=== PATIENT | male | born 1980 | race Caucasian/White ===

== ENCOUNTER 2019-12-31 13:33 | Emergency (ER) | payer OTHER ==
[~2019-12-31] VITALS: Ht 175.3 cm; Wt 87.0 kg
[2019-12-31 13:35] VITALS: BP 142/92
--- NOTE | 2019-12-31 14:00 | PHYS DOC ---
Past History Past Medical History: No Pertinent History Past Surgical History: No Surgical History Smoking: Non-smoker Adult General Chief Complaint Chief Complaint: ANIMAL BITE HPI HPI Patient is a 39 year old male who presents with a dog bite on his left posterior thigh that occurred during a bike ride this morning at 0700. Patient states he went to an urgent care where he was given a tetanus vaccine and a prescription for Augmentin. He was instructed to go to the ED for a possible rabies vaccine. Patient is unsure if dog is up to date on its vaccines. Owners of the dog are unavailable at this time. Neighbors of the bufferer reportedly stated that the dog is known to be aggressive in the neighborhood. Police report has been filed. Patient states the pain is at a 0/10 currently. Patient reports it is known where dog resides and is domesticated. Review of Systems Review of Systems Constitutional: Denies fever or chills Eyes: Denies redness or eye pain HENT: Denies nasal congestion or sore throat Respiratory: Denies cough or shortness of breath Cardiovascular: Denies chest pain or palpitations GI: Denies abdominal pain, nausea, or vomiting : Denies dysuria or hematuria Musculoskeletal: Denies back pain or joint pain Integument: Denies rash or skin lesions. Reports dog bite wounds on his left posterior thigh. Neurologic: Denies headache, focal weakness or sensory changes Complete systems were reviewed and found to be within normal limits, except as documented in this note. Current Medications Current Medications Current Medications Medications (Trade) Dose Ordered Sig/Trent Start Time Stop Time Status Last Admin Dose Admin Amoxicillin/ Clavulanate Potassium (Augmentin 875/ 125mg) 1 tab 1X ONCE 12/31/19 14:00 12/31/19 14:01 UNV Neomycin/ Polymyxin/ Bacitracin (Triple Antibiotic Ointment) 1 pkt 1X ONCE 12/31/19 14:00 12/31/19 14:01 UNV Physical Exam Physical Exam Constitutional: Well developed, well nourished, no acute distress, non-toxic appearance HENT: Normocephalic, atraumatic, oropharynx moist Eyes: Conjunctiva normal, no discharge Neck: Normal range of motion, no tenderness, supple Cardiovascular: Heart rate normal, regular rhythm Lungs & Thorax: Bilateral breath sounds clear to auscultation, no wheezing Skin: Warm, dry, no erythema, dog bite wound to left posterior thigh as below Extremities: No tenderness, ROM intact, no edema. Mild tenderness to palpation of two 1 cm puncture wounds located on his left posterior thigh with dressing with scant serosanguineous drainage Neurologic: Alert and oriented X 3, no focal deficits noted Psychologic: Affect normal, judgment normal Course & Med Decision Making Course & Med Decision Making Patient is a 39 year old male who presents with a dog bite on his left posterior thigh that occurred during a bike ride this morning at 0700. Patient is unsure if dog is up to date on its vaccinations. Owners of the dog are unavailable currently. Police report was filed. Patient received tetanus vaccine at urgent care along with a prescription for Augmentin. Wound was cleaned with chlorhexidine and non-adhesive dressing with Triple antibiotic ointment was applied. Patient given instructions on wound care. Patient stable for discharge with outpatient follow-up with PCP. Discussed findings and plan with patient, who acknowledges understanding and agreement. Dragon Disclaimer Dragon Disclaimer This electronic medical record was generated, in whole or in part, using a voice recognition dictation system. Departure Departure: Impression: Primary Impression: Dog bite Disposition: 01 HOME, SELF-CARE Condition: STABLE Referrals: ENMA ROBLES DO (PCP) Patient Instructions: Animal Bite, [id number], Wound Care, [id number] Additional Instructions: Do not soak your wound. You may shower. Clean wound daily with soap and water. Change dressing 2 times daily. Use over the counter antibiotic ointment with each dressing change. Problem Qualifiers Primary Impression: Dog bite Encounter type: initial encounter Qualified Codes: W54.0XXA - Bitten by dog, initial encounter FOZIA ULRICH DO Dec 31, 2019 14:00
[2019-12-31] MEDS ORDERED: NEOMY/BACITR/POLYMYXIN OINT PACKET. TP ONE (14:30)
[2019-12-31] MEDS ORDERED: AMOXICILLIN/K CLAV 875/125MG TABLET. PO ONE (14:30)
== END 2019-12-31 14:51 | disposition home or self-care (01) ==
LOC: ER 13:33
DX: S71.132A Puncture wound without foreign body, left thigh, initial encounter (principal); W54.0XXA Bitten by dog, initial encounter; Y93.55 Activity, bike riding; Y92.89 Other specified places as the place of occurrence of the external cause; Y99.8 Other external cause status
CPT/HCPCS: 99284